=== PATIENT | male | born 1940 | race Caucasian/White ===

== ENCOUNTER 2024-08-23 14:30 | Emergency (ER) | payer MEDICARE, OTHER ==
[2024-08-23] MEDS ORDERED: Sodium Chloride 0.9% 10 ML Syringe FLUSH PRN (15:07)
[2024-08-23 15:28] LABS: HEMATOCRIT 32.6 % (38.3-50.1); HEMOGLOBIN 11.2 g/dL (12.9-17.7); MEAN CORPUSCULAR HEMOGLOBIN 34.8 pg (27.0-33.3); MEAN CORPUSCULAR HGB CONC 34.4 g/dL (28.7-35.3); MEAN PLATELET VOLUME 8.6 fL (6.7-11.0); PLATELET COUNT,PLT 138 x10(3)uL (117-477); RED BLOOD CELL COUNT 3.22 x10(6)uL (3.90-5.90); RED CELL DISTRIBUTION WIDTH 14.2 % (12.4-15.0); WHITE BLOOD CELL COUNT,WBC 5.5 x10-3/uL (3.2-10.1)
[2024-08-23 15:29] LABS: BLOOD UREA NITROGEN,BUN 26 mg/dL (7-18); BUN/CREATININE RATIO 21.7 (9-20); CALCIUM 8.8 mg/dL (8.6-10.2); CARBON DIOXIDE,CO2 28 mmol/L (21-32); CHLORIDE,CL 105 mmol/L (100-110); CREATININE 1.2 mg/dL (0.70-1.30); ESTIMATED GFR 60 mL/min (>60); GLUCOSE RANDOM 201 mg/dL (80-116); POTASSIUM,K 3.9 mmol/L (3.5-5.3); SODIUM,NA 142 mmol/L (135-145)
[2024-08-23 15:31] LABS: INR 1.18 (1.00-1.24); PROTHROMBIN TIME 12.1 sec (9.0-11.1)
[2024-08-23 15:35] LABS: A/G RATIO 1.2; ALANINE AMINOTRANSFERASE,ALT 22 U/L (12-36); ALBUMIN 3.3 g/dL (3.2-4.6); ALKALINE PHOSPHATASE 83 IU/L (56-112); ASPARTATE AMNIOTRANSFERASE,AST 9 IU/L (5-25); BILIRUBIN TOTAL 0.5 mg/dL (0.1-1.3); MAGNESIUM 1.6 mg/dL (1.8-2.5)
[2024-08-23 15:36] LABS: EOSINOPHILS PERCENT MAN 2 % (0-5); LYMPHOCYTES PERCENT MAN 12 % (13-37); MONOCYTES PERCENT MAN 16 % (4-12); SEG NEUTROPHILS PERCENT MAN 70 % (46-82)
[2024-08-23 15:38] LABS: LACTIC ACID 0.8 mmol/L (0.4-2.0)
[2024-08-23 15:44] LABS: TROPONIN I 12.6 pg/mL (4.0-60.3)
[2024-08-23 15:48] LABS: C-REACTIVE PROTEIN < 0.50 mg/dL (<0.50); PRO B-TYPE NATRIUR PEPT,BNPPRO 2569 pg/mL (<=450)
[2024-08-23] MEDS ORDERED: LORazepam 2 MG/ML SDV IVPUSH ONE (17:35)
[2024-08-23] MEDS: LORazepam 2 MG/ML SDV IM ONE (17:56)
[2024-08-23 18:45] LABS: APPEARANCE,URINE CLEAR (CLEAR); BILIRUBIN,URINE NEGATIVE (NEGATIVE); COLOR,URINE YELLOW (YELLOW); GLUCOSE,URINE 50 mg/dL (NORMAL); KETONES,URINE NEGATIVE (NEGATIVE); LEUKOCYTE ESTERASE,URINE NEGATIVE (NEGATIVE); NITRITE,URINE NEGATIVE (NEGATIVE); OCCULT BLOOD,URINE NEGATIVE (NEGATIVE); PROTEIN,URINE NEGATIVE (NEGATIVE); UROBILINOGEN,URINE NORMAL (NEGATIVE)
[2024-08-23] MEDS: Morphine 2 MG/ML SYRINGE IVPUSH ONE (19:56)
[2024-08-23 20:46] VITALS: BP 169/88; PULSE 90
== END 2024-08-23 21:35 ==
LOC: FB.ED 14:30
DX: S32.050A Wedge compression fracture of fifth lumbar vertebra, initial encounter for closed fracture (principal); I11.0 Hypertensive heart disease with heart failure; I50.9 Heart failure, unspecified; I48.91 Unspecified atrial fibrillation; Z87.891 Personal history of nicotine dependence; Z88.2 Allergy status to sulfonamides; Z79.01 Long term (current) use of anticoagulants; Z79.82 Long term (current) use of aspirin; Z79.84 Long term (current) use of oral hypoglycemic drugs; Z79.899 Other long term (current) drug therapy; X58.XXXA Exposure to other specified factors, initial encounter
CPT/HCPCS: 36415; 72128; 80053; 81003; 83605; 83735; 83880; 84484; 85025; 85610; 86140; 93005; 96372; 96374; 99285; J2060; J2270; 72131

== ENCOUNTER 2024-12-30 12:21 | Emergency (ER) | payer MEDICARE, OTHER ==
[2024-12-30 12:45] VITALS: BP 127/78; PULSE 76
[2024-12-30] MEDS: Sodium Chloride 0.9% 1,000 ML IV ONE (13:06)
[2024-12-30 13:09] LABS: BASOPHILS PERCENT AUTO 0.5 % (0.3-3.8); EOSINOPHILS ABSOLUTE AUTO 0.1 x10-3/uL (0.0-0.6); EOSINOPHILS PERCENT AUTO 2.3 % (0.1-6.8); HEMATOCRIT 31.7 % (38.3-50.1); HEMOGLOBIN 10.7 g/dL (12.9-17.7); LYMPHOCYTES ABSOLUTE AUTO 0.6 x10-3/uL (0.5-4.5); LYMPHOCYTES PERCENT AUTO 12.9 % (15.8-45.3); MEAN CORPUSCULAR HEMOGLOBIN 34.5 pg (27.0-33.3); MEAN CORPUSCULAR HGB CONC 33.7 g/dL (28.7-35.3); MEAN CORPUSCULAR VOLUME 102.3 fL (80.8-98.7); MEAN PLATELET VOLUME 7.7 fL (6.7-11.0); MONOCYTES ABSOLUTE AUTO 0.6 x10-3/uL (0.0-1.2); MONOCYTES PERCENT AUTO 13.9 % (5.5-15.2); NEUTROPHILS ABSOLUTE AUTO 3.1 x10-3/uL (1.7-6.9); NEUTROPHILS PERCENT AUTO 70.4 % (40.3-71.8); PLATELET COUNT,PLT 160 x10(3)uL (117-477); RED CELL DISTRIBUTION WIDTH 13.6 % (12.4-15.0); WHITE BLOOD CELL COUNT,WBC 4.5 x10-3/uL (3.2-10.1)
[2024-12-30 13:13] LABS: INR 2.22 (1.00-1.24); PROTHROMBIN TIME 21.6 sec (9.0-11.1)
[2024-12-30 13:17] LABS: BLOOD UREA NITROGEN,BUN 22 mg/dL (7-18); CALCIUM 8.4 mg/dL (8.6-10.2); CARBON DIOXIDE,CO2 28 mmol/L (21-32); CHLORIDE,CL 100 mmol/L (100-110); ESTIMATED GFR 75 mL/min (>60); GLUCOSE RANDOM 183 mg/dL (80-116); POTASSIUM,K 4.4 mmol/L (3.5-5.3); SODIUM,NA 137 mmol/L (135-145)
[2024-12-30 13:21] LABS: ALANINE AMINOTRANSFERASE,ALT 13 U/L (12-36); ALBUMIN 3.2 g/dL (3.2-4.6); ALKALINE PHOSPHATASE 86 IU/L (56-112); ASPARTATE AMNIOTRANSFERASE,AST 16 IU/L (5-25); BILIRUBIN TOTAL 0.3 mg/dL (0.1-1.3); PROTEIN TOTAL,TP 6.4 g/dL (6.0-8.0)
[2024-12-30 14:34] LABS: BILIRUBIN,URINE NEGATIVE (NEGATIVE); GLUCOSE,URINE >1000 mg/dL (NORMAL); KETONES,URINE NEGATIVE (NEGATIVE); LEUKOCYTE ESTERASE,URINE SMALL (NEGATIVE); NITRITE,URINE NEGATIVE (NEGATIVE); OCCULT BLOOD,URINE MODERATE (NEGATIVE); PROTEIN,URINE NEGATIVE (NEGATIVE); UROBILINOGEN,URINE NORMAL (NEGATIVE)
[2024-12-30 14:44] LABS: APPEARANCE,URINE SLIGHTLY CLOUDY (CLEAR); COLOR,URINE YELLOW (YELLOW)
[2024-12-30 14:45] LABS: RBC,URINE 0-5 (0-5); WBC,URINE 0-5 (0-5)
[2024-12-30 14:46] LABS: BACTERIA,URINE FEW (NS); SQUAMOUS EPITHELIAL CELLS,UR RARE (NS,R,O)
== END 2024-12-30 15:35 ==
LOC: FB.ED 12:21
DX: R55 Syncope and collapse (principal); Z79.82 Long term (current) use of aspirin; Z88.2 Allergy status to sulfonamides; Z79.84 Long term (current) use of oral hypoglycemic drugs
CPT/HCPCS: 36415; 70450; 80053; 81001; 84484; 85025; 85610; 87086; 87088; 87186; 93005; 96360; 99285; J7030

== ENCOUNTER 2025-01-31 17:14 | Emergency (ER) | payer MEDICARE, OTHER ==
[2025-01-31 18:24] LABS: HEMATOCRIT 33.1 % (38.3-50.1); HEMOGLOBIN 11.4 g/dL (12.9-17.7); MEAN CORPUSCULAR HEMOGLOBIN 34.6 pg (27.0-33.3); MEAN CORPUSCULAR HGB CONC 34.3 g/dL (28.7-35.3); MEAN CORPUSCULAR VOLUME 100.7 fL (80.8-98.7); MEAN PLATELET VOLUME 7.6 fL (6.7-11.0); PLATELET COUNT,PLT 152 x10(3)uL (117-477); RED BLOOD CELL COUNT 3.29 x10(6)uL (3.90-5.90); RED CELL DISTRIBUTION WIDTH 13.2 % (12.4-15.0); WHITE BLOOD CELL COUNT,WBC 3.7 x10-3/uL (3.2-10.1)
[2025-01-31 18:28] LABS: BLOOD UREA NITROGEN,BUN 31 mg/dL (7-18); BUN/CREATININE RATIO 22.1 (9-20); CALCIUM 8.9 mg/dL (8.6-10.2); CARBON DIOXIDE,CO2 25 mmol/L (21-32); CHLORIDE,CL 98 mmol/L (100-110); CREATININE 1.4 mg/dL (0.70-1.30); EST CRCL DRUG DOSING (CG) 44.65 mL/min; ESTIMATED GFR 50 mL/min (>60); GLUCOSE RANDOM 108 mg/dL (80-116); POTASSIUM,K 4.8 mmol/L (3.5-5.3); SODIUM,NA 133 mmol/L (135-145)
[2025-01-31 18:29] LABS: EOSINOPHILS PERCENT MAN 6 % (0-5); LYMPHOCYTES PERCENT MAN 24 % (13-37); MONOCYTES PERCENT MAN 11 % (4-12); SEG NEUTROPHILS PERCENT MAN 59 % (46-82)
[2025-01-31 18:33] LABS: INR 1.86 (1.00-1.24); PROTHROMBIN TIME 18.4 sec (9.0-11.1)
[2025-01-31 18:34] LABS: ALANINE AMINOTRANSFERASE,ALT 17 U/L (12-36); ALBUMIN 3.4 g/dL (3.2-4.6); ALKALINE PHOSPHATASE 83 IU/L (56-112); ASPARTATE AMNIOTRANSFERASE,AST 19 IU/L (5-25); BILIRUBIN TOTAL 0.4 mg/dL (0.1-1.3); PROTEIN TOTAL,TP 6.9 g/dL (6.0-8.0)
[2025-01-31 21:52] VITALS: BP 140/72; PULSE 85
== END 2025-01-31 21:50 ==
LOC: FB.ED 17:14
DX: S32.031A Stable burst fracture of third lumbar vertebra, initial encounter for closed fracture (principal); I48.91 Unspecified atrial fibrillation; Z79.82 Long term (current) use of aspirin; Z79.899 Other long term (current) drug therapy; Z79.84 Long term (current) use of oral hypoglycemic drugs; Z88.2 Allergy status to sulfonamides; W18.2XXA Fall in (into) shower or empty bathtub, initial encounter; Y92.121 Bathroom in nursing home as the place of occurrence of the external cause
CPT/HCPCS: 36415; 70450; 72125; 72128; 72131; 80053; 85025; 85610; 99284; 99285

== ENCOUNTER 2025-03-11 15:36 | Emergency (ER) | payer MEDICARE, OTHER ==
[2025-03-11 16:17] LABS: MEAN PLATELET VOLUME 7.8 fL (6.7-11.0); PLATELET COUNT,PLT 143 x10(3)uL (117-477); RED BLOOD CELL COUNT 2.90 x10(6)uL (3.90-5.90); RED CELL DISTRIBUTION WIDTH 13.9 % (12.4-15.0); WHITE BLOOD CELL COUNT,WBC 3.8 x10-3/uL (3.2-10.1)
[2025-03-11 16:18] LABS: BLOOD UREA NITROGEN,BUN 24 mg/dL (7-18); CARBON DIOXIDE,CO2 29 mmol/L (21-32); CHLORIDE,CL 103 mmol/L (100-110); CREATININE 1.4 mg/dL (0.70-1.30); ESTIMATED GFR 50 mL/min (>60); GLUCOSE RANDOM 138 mg/dL (80-116); POTASSIUM,K 4.9 mmol/L (3.5-5.3); SODIUM,NA 138 mmol/L (135-145)
[2025-03-11 16:22] LABS: INR 2.49 (1.00-1.24)
[2025-03-11 16:23] LABS: A/G RATIO 1.1; ALANINE AMINOTRANSFERASE,ALT 14 U/L (12-36); ASPARTATE AMNIOTRANSFERASE,AST 12 IU/L (5-25); BILIRUBIN TOTAL 0.3 mg/dL (0.1-1.3); PROTEIN TOTAL,TP 6.1 g/dL (6.0-8.0)
[2025-03-11 16:36] LABS: EOSINOPHILS PERCENT MAN 6 % (0-5); LYMPHOCYTES PERCENT MAN 16 % (13-37); MONOCYTES PERCENT MAN 15 % (4-12); SEG NEUTROPHILS PERCENT MAN 63 % (46-82)
== END 2025-03-11 17:52 ==
LOC: FB.ED 15:36
DX: S40.011A Contusion of right shoulder, initial encounter (principal); I48.91 Unspecified atrial fibrillation; Z79.82 Long term (current) use of aspirin; Z79.899 Other long term (current) drug therapy; Z79.84 Long term (current) use of oral hypoglycemic drugs; Z87.891 Personal history of nicotine dependence; Z88.2 Allergy status to sulfonamides; W19.XXXA Unspecified fall, initial encounter
CPT/HCPCS: 36415; 70450; 72125; 72128; 72131; 80053; 85025; 85610; 85730; 86140; 99285